=== PATIENT | male | born 1970 ===

== ENCOUNTER → 2017-04-28 | Outpatient (REF) | payer OTHER ==
[2017-04-28 13:45] LABS: RHEUMATOID FACTOR QUANT < 10.0 IU/ML (<15.0); TOTAL PROTEIN 8.3 GM/DL (6.4-8.2)
[2017-04-28 14:03] LABS: REASON FOR REVIEW ANEMIA / RBC MORPH; SLIDE REVIEW Report; SOURCE PERIPHERAL SMEAR
[2017-04-28 14:42] LABS: ERYTHROCYTE SEDIMENTATION RATE 15 mm/hr (0-15)
[2017-04-29 14:10] LABS: HAPTOGLOBIN 148 mg/dL (34-200)
[2017-04-29 14:10] LABS: ANTINUCLEAR ANTIBODIES DIRECT Negative (Negative)
[2017-05-01 14:24] LABS: ALBUMIN 4.77 GM/DL (3.29-5.55); ALBUMIN % 57.5 % (55.8-66.1); ALPHA-1-GLOBULIN % 3.3 % (2.9-4.9); ALPHA-2-GLOBULINS % 10.5 % (7.1-11.8); BETA-1-GLOBULINS % 6.8 % (4.7-7.2); BETA-2-GLOBULINS % 4.6 % (3.2-6.5); GAMMA GLOBULIN % 17.3 % (11.1-18.8)
[2017-05-01 14:25] LABS: ALPHA-1-GLOBULINS 0.27 GM/DL (0.17-0.41); ALPHA-2-GLOBULINS 0.87 GM/DL (0.42-0.99); BETA-1-GLOBULINS 0.56 GM/DL (0.28-0.60); BETA-2-GLOBULINS 0.38 GM/DL (0.19-0.55); GAMMA GLOBULINS 1.44 GM/DL (0.65-1.58)
== END ==
LOC: M LAB REF 12:54
DX: D64.9 Anemia, unspecified (principal)